=== PATIENT | female | born 1965 | race African-American/Black ===

== ENCOUNTER 2016-11-21 14:50 | Emergency (ER) | payer SELFPAY ==
[~2016-11-21] VITALS: Ht 165.1 cm; Wt 100.0 kg
[2016-11-21 14:53] VITALS: BP 134/89; PULSE 84; RESP 16; TEMP 98.4; O2SAT 96
--- NOTE | 2016-11-21 17:32 | PD ---
HPI Chief Complaint: Pain: Acute or Chronic Time Seen by Provider: 17:09 Travel History International Travel<30 days: No Contact w/Intl Traveler<30days: No Traveled to known affect area: No History of Present Illness HPI 50-year-old female complains of bilateral breast pain. Patient states that she has intermittent sharp pain on her breast for the past few months. Patient states that she was late for her menstruation period last month and has not had her menstruation period this month. Patient states that she has a brown vaginal discharge yesterday. Patient states that she she has not had a physical exam done for years. Patient's not sure whether she ever had a mammogram done in the past. Patient denies any history of breast cancer. Patient states that she has a remote family history of breast cancer. Patient has history hypertension however is not on any medication for the past few months. Patient denies any headache. Patient denies any chest pain or shortness of breath. Patient denies abdominal pain. Patient denies any dysuria or frequency. Patient denies any fever chills. Review of Systems General / Constitutional: No: Fever Eyes: No: Visual changes HENT: No: Headaches Cardiovascular: No: Chest Pain or Discomfort Respiratory: No: Shortness of Breath Gastrointestinal: No: Abdominal Pain Genitourinary: No: Dysuria Musculoskeletal: No: Pain Skin: No Rash Neurologic: No: Weakness Psychiatric: No: Depression Endocrine: No: Polydipsia Hematologic/Lymphatic: No: Easy Bruising Physical Exam Narrative GENERAL: Well-nourished, well-developed patient. SKIN: Focused skin assessment warm/dry. HEAD: Normocephalic. EYES: No scleral icterus. No injection or drainage. NECK: Supple, trachea midline. No JVD or lymphadenopathy. CARDIOVASCULAR: Regular rate and rhythm without murmurs, gallops, or rubs. RESPIRATORY: Breath sounds equal bilaterally. No accessory muscle use. GASTROINTESTINAL: Abdomen soft, non-tender, nondistended. MUSCULOSKELETAL: No cyanosis, or edema. BACK: Nontender without obvious deformity. No CVA tenderness. Examination of both restive use some fibrocystic structure. No dominant mass. No skin dimpling. No redness no discharge noted. Patient has mild diffuse tenderness of the breast. Data Data Last Documented VS Vital Signs Date Time Temp Pulse Resp B/P (MAP) Pulse Ox O2 Delivery O2 Flow Rate FiO2 11/21/16 14:53 98.4 84 16 134/89 (104) 96 Orders Orders Ed Urine Pregnancytest Poc (11/21/16 17:15) MDM Medical Screen Exam Complete: Yes Emergency Medical Condition: No Narrative Course A medical screening exam was performed: At the time of evaluation the presenting medical condition was determined not to be of an emergent nature. The patient was given the option of receiving additional care, but declined. Patient was given options for additional community resources from which to obtain care. The Patient Has Been advised to seek medical attention for their presenting complaint. The patient has been advised to return to the ER at any time if an emergent condition develops. Primary Impression: Encounter for medical screening examination Condition: Stable Ian Davis MD Nov 21, 2016 17:32
== END 2016-11-21 17:32 | disposition left against medical advice (07) ==
LOC: NEPD 14:50
DX: N64.4 Mastodynia (principal); N89.8 Other specified noninflammatory disorders of vagina
CPT/HCPCS: 99281